=== PATIENT | male | born 1930 | race Caucasian/White ===

== ENCOUNTER 2017-06-25 01:31 | Observation (INO) | payer OTHER ==
[~2017-06-25] VITALS: Ht 182.9 cm; Wt 74.0 kg
[~2017-06-25 01:31] MED LIST: ADULT LOW DOSE81 M1 PO; ALBUTEROL2.5 MG/3 M IH; ASPIR 8181 M1 PO; ATENOLOL25 MG PO; ATENOLOL50 MG PO; ATORVASTATIN CA40 MG PO; CALCITRIOL0.25 MCG PO; CARVEDILOL3.125 MG PO; CARVEDILOL6.25 MG PO; CORICIDIN HB1 TABLET PO; COUMADIN2.5 MG PO; COUMADIN5 MG PO; ENDOCET 5-3251 EACH PO; EXCEDRIN EXTRA1 EACH PO; FERROUS SULFAT324 M1 PO; FERROUS SULFAT325 MG PO; FLONASE16 G1 BOTH NARES; FUROSEMIDE40 MG PO; FUROSEMIDE80 MG PO; HYDROCODON-ACE1 EAC7 PO; IMODIUM MS REL1 EACH PO; IRON325 MG PO; IRON55 MG PO; ISOSORBIDE MONO30 MG PO; Imdur PO; K-Dur PO; KLOR-CON M2020 MEQ PO; LASIX40 MG PO; LASIX80 MG PO; LEVOFLOXACIN750 MG PO; LEVOTHYROXINE25 MCG PO; LIDOCAINE700 MG TD; LISINOPRIL20 MG PO; LISINOPRIL40 MG PO; LO-DOSE ASPIRIN81 M1 PO; LOVENOX60 MG/0.6 SC; Lasix PO; MIDODRINE HCL5 MG PO; MYCOSTATIN 100,60 ML PO; Norvasc PO; OMEPRAZOLE20 MG PO; POTASSIUM CHLO20 ME1 PO; PREDNISONE10 MG PO; PROBIOTIC1 EAC1 PO; PULMICORT FLE180 MCG IH; SALINE NASAL SP45 ML BOTH NARES; SYNTHROID25 MCG PO; SYNTHROID50 MCG PO; THERAGRAN1 TABLET PO; TYLENOL EXTRA500 MG PO; Tenormin PO; VANCOMYCIN HCL125 MG PO; VENTOLIN HFA18 GM IH; VITAMIN D; VITAMIN D1000 INTUN PO; VITAMIN D2000 UNIT PO; VITAMIN D32000 UNI1 PO; VYTORIN 10/21 TABLET PO; Vytorin 10/10 PO; WARFARIN SODIU2.5 MG PO; WARFARIN SODIUM5 MG PO; Zestril,Prinivil PO
[2017-06-25 02:22] LABS: BASOPHIL (%) 0.3 % (0-1); EOSINOPHIL (%) 0.3 % (0-5); HEMATOCRIT 37.8 % (38.0-50.0); HEMOGLOBIN 13.1 G/DL (12.5-16.6); IMMATURE GRANULOCYTE (%) 0.1 % (0.0-0.7); LYMPHOCYTE (%) 6.4 % (15-42); LYMPHOCYTE COUNT 0.5 K/uL (1.0-2.8); MCH 31.9 PG (29.0-34.0); MCHC 34.7 G/DL (30.0-36.0); MONOCYTE (%) 6.5 % (3-12); MONOCYTE COUNT 0.5 K/uL (0-0.8); NEUTROPHIL (%) 86.4 % (45-76); NEUTROPHIL COUNT 6.3 K/uL (1.8-6.4); PLATELET COUNT 110 K/uL (156-360); RBC DIS.WIDTH-CV 14.2 % (11.8-14.6); RBC DIS.WIDTH-SD 48.1 % (39-53); RED BLOOD COUNT 4.11 M/uL (4.00-5.50); WHITE BLOOD COUNT 7.2 K/uL (4.1-10.2)
[2017-06-25 02:31] LABS: ALBUMIN 4.3 g/dL (3.2-4.8); CHLORIDE 105 mEq/L (99-109); SODIUM 136 mEq/L (136-147)
[2017-06-25 02:32] LABS: MAGNESIUM 1.9 mg/dL (1.3-2.7)
[2017-06-25 02:33] LABS: GLUCOSE 152 mg/dL (70-99)
[2017-06-25 02:34] LABS: TOTAL PROTEIN 6.9 g/dL (6.4-8.3)
[2017-06-25 02:35] LABS: TOTAL BILIRUBIN 1.1 mg/dL (0.0-1.0)
[2017-06-25 02:37] LABS: ALKALINE PHOSPHATASE 115 IU/L (3-129); CREATININE 1.5 mg/dL (0.6-1.3); GFR ESTIMATE (CALCULATED) 47 mL/min/ (58.99-99999)
[2017-06-25 02:38] LABS: UREA NITROGEN (BUN) 27 mg/dL (9-23)
[2017-06-25 02:39] LABS: AST (GOT) 31 IU/L (2-34)
[2017-06-25 02:40] LABS: ALT (GPT) 17 IU/L (3-49)
[2017-06-25 02:41] LABS: APPEARANCE CLEAR ((CLEAR)); BILIRUBIN NEGATIVE; BLOOD SMALL; COLOR YELLOW ((YELLOW)); GLUCOSE (STRIP) NEGATIVE; KETONES NEGATIVE; LEUKOCYTES NEGATIVE; NITRITE NEGATIVE; PROTEIN (STRIP) NEGATIVE; SPECIFIC GRAVITY 1.011 (1.000-1.030); UROBILINOGEN 0.2 MG/DL (0.2-1.0)
[2017-06-25 02:44] LABS: TROP-I INTERPRETATION NEGATIVE; TROPONIN-I 0.03 ng/mL (0.0-0.30)
[2017-06-25 02:47] LABS: BACTERIA NONE SEEN /HPF; EPITHELIAL CELLS RARE /HPF; MUCUS TRACE /LPF; RED BLOOD CELLS 0-5 /HPF (0-5); UCUL ADDED? NO; WHITE BLOOD CELLS 0-5 /HPF (0-5)
[2017-06-25 03:44] LABS: INTER. NORMALIZED RATIO 2.5
[2017-06-25 06:53] LABS: BASOPHIL (%) 0.1 % (0-1); EOSINOPHIL (%) 0.1 % (0-5); HEMATOCRIT 35.6 % (38.0-50.0); HEMOGLOBIN 12.2 G/DL (12.5-16.6); IMMATURE GRANULOCYTE (%) 0.3 % (0.0-0.7); LYMPHOCYTE (%) 8.6 % (15-42); LYMPHOCYTE COUNT 0.8 K/uL (1.0-2.8); MCH 31.9 PG (29.0-34.0); MCHC 34.3 G/DL (30.0-36.0); MONOCYTE (%) 6.3 % (3-12); MONOCYTE COUNT 0.6 K/uL (0-0.8); NEUTROPHIL (%) 84.6 % (45-76); NEUTROPHIL COUNT 7.6 K/uL (1.8-6.4); PLATELET COUNT 99 K/uL (156-360); RBC DIS.WIDTH-CV 14.2 % (11.8-14.6); RED BLOOD COUNT 3.83 M/uL (4.00-5.50)
[2017-06-25 07:23] LABS: CHLORIDE 103 MEQ/L (99-109); CREATININE 1.5 MG/DL (0.6-1.3); GFR ESTIMATE (CALCULATED) 47 mL/min/ (58.99-99999); GLUCOSE 135 mg/dL (70-99); POTASSIUM 3.9 MEQ/L (3.7-5.4); SODIUM 139 MEQ/L (136-147); UREA NITROGEN (BUN) 26 mg/dL (9-23)
[2017-06-25 07:39] VITALS: BP 149/77
[2017-06-25] MEDS ORDERED: LASIX20 MG PO (09:29)
[2017-06-25] MEDS ORDERED: LASIX40 MG PO (09:29)
[2017-06-25] MEDS ORDERED: COUMADIN7.5 MG PO (09:32)
[2017-06-25] MEDS ORDERED: COUMADIN5 MG PO (09:33)
[2017-06-25] MEDS ORDERED: FEOSOL325 MG PO (09:35)
[2017-06-25] MEDS ORDERED: FLORASTOR250 MG PO (09:36)
[2017-06-25] MEDS ORDERED: KLOR-CON 1010 ME1 PO (09:38)
[2017-06-25 13:18] VITALS: BP 123/58
[2017-06-25 16:26] VITALS: BP 115/55
[2017-06-25 20:00] VITALS: BP 100/57
[2017-06-25 22:39] VITALS: BP 113/67
[2017-06-26 00:40] VITALS: BP 113/60
[2017-06-26 04:28] VITALS: BP 123/61
[2017-06-26 06:32] LABS: HEMATOCRIT 32.8 % (38.0-50.0); MCH 31.8 PG (29.0-34.0); MCHC 33.5 G/DL (30.0-36.0); MCV 94.8 FL (86-99); PLATELET COUNT 92 K/uL (156-360); RBC DIS.WIDTH-CV 14.3 % (11.8-14.6); RED BLOOD COUNT 3.46 M/uL (4.00-5.50); WHITE BLOOD COUNT 5.7 K/uL (4.1-10.2)
[2017-06-26 06:41] LABS: INTER. NORMALIZED RATIO 2.6
[2017-06-26 06:54] LABS: CHLORIDE 103 MEQ/L (99-109); CREATININE 1.4 MG/DL (0.6-1.3); GFR ESTIMATE (CALCULATED) 51 mL/min/ (58.99-99999); GLUCOSE 102 mg/dL (70-99); POTASSIUM 3.8 MEQ/L (3.7-5.4); SODIUM 139 MEQ/L (136-147); UREA NITROGEN (BUN) 29 mg/dL (9-23)
[2017-06-26 07:07] VITALS: BP 128/66
[2017-06-26] MEDS ORDERED: AUGMENTIN500 MG PO (08:43)
== END 2017-06-26 10:52 | disposition home or self-care (01) ==
LOC: EME → EDBD 01:31 → EME 01:31 → EDOF 05:28 → ENRESERV 05:32 → 5WEST 07:18
PROVIDERS: Emergency Medicine; Hospitalist; Internal Medicine
DX: J69.0 Pneumonitis due to inhalation of food and vomit (principal); R09.02 Hypoxemia; R94.31 Abnormal electrocardiogram [ECG] [EKG]; I48.0 Paroxysmal atrial fibrillation; I25.5 Ischemic cardiomyopathy; I25.10 Atherosclerotic heart disease of native coronary artery without angina pectoris; I25.2 Old myocardial infarction; Z95.810 Presence of automatic (implantable) cardiac defibrillator; Z95.1 Presence of aortocoronary bypass graft; Z79.01 Long term (current) use of anticoagulants; J43.9 Emphysema, unspecified; I10 Essential (primary) hypertension; E78.5 Hyperlipidemia, unspecified; Z87.891 Personal history of nicotine dependence
CPT/HCPCS: 71045; 71046; 80048; 80048 91; 80053; 81003; 83605; 83735; 83880; 84484; 85025; 85025 91; 85027; 85610; 87040; 87070; 87205; 92610 GN; 93005; 94799; 99281; 99285; G0378; G8996 GN CH; G8997 GN CH; G8998 GN CH; J0295; J2543; J7050

== ENCOUNTER 2018-01-17 20:25 | Emergency (ER) | payer OTHER ==
[~2018-01-17] VITALS: Ht 182.9 cm; Wt 80.8 kg
[~2018-01-17 20:25] MED LIST changes: +AUGMENTIN500 MG PO; +COUMADIN7.5 MG PO; +FEOSOL325 MG PO; +FLORASTOR250 MG PO; +KLOR-CON 1010 ME1 PO; +LASIX20 MG PO
[2018-01-17 21:50] LABS: HEMATOCRIT 37.1 % (38.0-50.0); HEMOGLOBIN 12.4 G/DL (12.5-16.6); MCH 31.7 PG (29.0-34.0); MCHC 33.4 G/DL (30.0-36.0); MCV 94.9 FL (86-99); RBC DIS.WIDTH-CV 16.8 % (11.8-14.6); RBC DIS.WIDTH-SD 57.3 % (39-53); RED BLOOD COUNT 3.91 M/uL (4.00-5.50); WHITE BLOOD COUNT 4.5 K/uL (4.1-10.2)
[2018-01-17 22:06] LABS: CHLORIDE 101 mEq/L (99-109); POTASSIUM 3.9 mEq/L (3.7-5.4)
[2018-01-17 22:07] LABS: SODIUM 138 mEq/L (136-147)
[2018-01-17 22:08] LABS: GLUCOSE 164 mg/dL (70-99); INTER. NORMALIZED RATIO 3.8
[2018-01-17 22:12] LABS: CREATININE 1.5 mg/dL (0.6-1.3); GFR ESTIMATE (CALCULATED) 47 mL/min/ (58.99-99999)
[2018-01-17 22:13] LABS: UREA NITROGEN (BUN) 36 mg/dL (9-23)
[2018-01-17 22:21] LABS: TROP-I INTERPRETATION NEGATIVE; TROPONIN-I 0.05 ng/mL (0.0-0.30)
[2018-01-18 00:10] VITALS: BP 129/89
[2018-01-18 03:37] LABS: PLATELET COUNT 96 K/uL (156-360)
== END 2018-01-18 00:10 | disposition home or self-care (01) ==
LOC: EME 20:25
PROVIDERS: Emergency Medicine
DX: I13.0 Hypertensive heart and chronic kidney disease with heart failure and stage 1 through stage 4 chronic kidney disease, or unspecified chronic kidney disease (principal); I50.9 Heart failure, unspecified; N18.9 Chronic kidney disease, unspecified; E03.9 Hypothyroidism, unspecified; I25.2 Old myocardial infarction; Z95.0 Presence of cardiac pacemaker; Z95.1 Presence of aortocoronary bypass graft; Z85.46 Personal history of malignant neoplasm of prostate; Z87.891 Personal history of nicotine dependence; Z79.01 Long term (current) use of anticoagulants
CPT/HCPCS: 71046; 80048; 83880; 84484; 85027; 85610; 93005; 99281; 99285

== ENCOUNTER 2018-02-02 15:03 | Observation (INO) | payer OTHER ==
[~2018-02-02] VITALS: Ht 182.9 cm; Wt 65.9 kg
[~2018-02-02 15:03] MED LIST changes: -KLOR-CON 1010 ME1 PO; -SYNTHROID50 MCG PO; +SYNTHROID88 MCG PO
[2018-02-02 16:18] LABS: BASOPHIL (%) 0.6 % (0-1); EOSINOPHIL (%) 3.4 % (0-5); EOSINOPHIL COUNT 0.2 K/uL (0-0.3); HEMOGLOBIN 13.7 G/DL (12.5-16.6); IMMATURE GRANULOCYTE (%) 0.2 % (0.0-0.7); LYMPHOCYTE (%) 16.2 % (15-42); LYMPHOCYTE COUNT 0.8 K/uL (1.0-2.8); MCH 31.9 PG (29.0-34.0); MCHC 33.4 G/DL (30.0-36.0); MCV 95.3 FL (86-99); MONOCYTE (%) 14.4 % (3-12); MONOCYTE COUNT 0.7 K/uL (0-0.8); NEUTROPHIL (%) 65.2 % (45-76); PLATELET COUNT 116 K/uL (156-360); RBC DIS.WIDTH-CV 16.9 % (11.8-14.6); RBC DIS.WIDTH-SD 58.5 % (39-53); WHITE BLOOD COUNT 4.6 K/uL (4.1-10.2)
[2018-02-02 16:26] LABS: CHLORIDE 91 mEq/L (99-109); POTASSIUM 3.3 mEq/L (3.7-5.4); SODIUM 140 mEq/L (136-147)
[2018-02-02 16:28] LABS: GLUCOSE 86 mg/dL (70-99)
[2018-02-02 16:31] LABS: CREATININE 1.7 mg/dL (0.6-1.3); GFR ESTIMATE (CALCULATED) 41 mL/min/ (58.99-99999)
[2018-02-02 16:32] LABS: UREA NITROGEN (BUN) 41 mg/dL (9-23)
[2018-02-02 16:39] LABS: TROP-I INTERPRETATION NEGATIVE; TROPONIN-I 0.18 ng/mL (0.0-0.30)
[2018-02-02] MEDS ORDERED: LASIX40 MG PO (16:56)
[2018-02-02 19:21] LABS: PTT 33.6 SEC (25-37)
[2018-02-02 19:24] LABS: ALBUMIN 3.6 g/dL (3.2-4.8)
[2018-02-02 19:27] LABS: TOTAL PROTEIN 6.3 g/dL (6.4-8.3)
[2018-02-02 19:29] LABS: TOTAL BILIRUBIN 1.9 mg/dL (0.0-1.0)
[2018-02-02 19:30] LABS: ALKALINE PHOSPHATASE 104 IU/L (3-129)
[2018-02-02 19:32] LABS: AST (GOT) 28 IU/L (2-34); DIRECT BILIRUBIN 0.8 mg/dL (0.0-0.3)
[2018-02-02 19:33] LABS: ALT (GPT) 14 IU/L (3-49); URIC ACID 12.8 mg/dL (3.1-9.2)
[2018-02-02 20:13] VITALS: BP 104/60
[2018-02-03 00:05] VITALS: BP 104/58
[2018-02-03 02:52] LABS: TROP-I INTERPRETATION NEGATIVE; TROPONIN-I 0.15 ng/mL (0.0-0.30)
[2018-02-03 03:38] VITALS: BP 133/67
[2018-02-03 05:41] LABS: BASOPHIL (%) 0.5 % (0-1); EOSINOPHIL (%) 5.2 % (0-5); EOSINOPHIL COUNT 0.2 K/uL (0-0.3); HEMATOCRIT 40.5 % (38.0-50.0); HEMOGLOBIN 13.5 G/DL (12.5-16.6); IMMATURE GRANULOCYTE (%) 0.2 % (0.0-0.7); LYMPHOCYTE (%) 21.1 % (15-42); LYMPHOCYTE COUNT 0.9 K/uL (1.0-2.8); MCH 31.5 PG (29.0-34.0); MCHC 33.3 G/DL (30.0-36.0); MCV 94.6 FL (86-99); MONOCYTE (%) 12.5 % (3-12); MONOCYTE COUNT 0.5 K/uL (0-0.8); NEUTROPHIL (%) 60.5 % (45-76); NEUTROPHIL COUNT 2.5 K/uL (1.8-6.4); PLATELET COUNT 109 K/uL (156-360); RBC DIS.WIDTH-SD 58.5 % (39-53); RED BLOOD COUNT 4.28 M/uL (4.00-5.50); WHITE BLOOD COUNT 4.1 K/uL (4.1-10.2)
[2018-02-03 06:03] LABS: CHLORIDE 94 MEQ/L (99-109); CREATININE 1.4 MG/DL (0.6-1.3); GFR ESTIMATE (CALCULATED) 51 mL/min/ (58.99-99999); GLUCOSE 91 mg/dL (70-99); POTASSIUM 3.4 MEQ/L (3.7-5.4); SODIUM 138 MEQ/L (136-147); UREA NITROGEN (BUN) 37 mg/dL (9-23)
[2018-02-03 07:37] VITALS: BP 141/85
[2018-02-03 11:26] VITALS: BP 100/68
[2018-02-03 15:32] VITALS: BP 114/60
== END 2018-02-03 18:14 | disposition home or self-care (01) ==
LOC: EME 15:03 → EDOF 18:37 → 4SOUTH 18:37 → ENRESERV 18:40 → 4SOUTH 19:38
PROVIDERS: Emergency Medicine; Hospitalist; Internal Medicine Cardiovascular Disease
DX: N17.9 Acute kidney failure, unspecified (principal); R55 Syncope and collapse; I48.91 Unspecified atrial fibrillation; I25.5 Ischemic cardiomyopathy; I13.0 Hypertensive heart and chronic kidney disease with heart failure and stage 1 through stage 4 chronic kidney disease, or unspecified chronic kidney disease; I50.9 Heart failure, unspecified; N18.9 Chronic kidney disease, unspecified; I48.0 Paroxysmal atrial fibrillation; E87.6 Hypokalemia; D69.6 Thrombocytopenia, unspecified; E78.5 Hyperlipidemia, unspecified; I34.0 Nonrheumatic mitral (valve) insufficiency; Z79.01 Long term (current) use of anticoagulants; Z95.0 Presence of cardiac pacemaker; I25.10 Atherosclerotic heart disease of native coronary artery without angina pectoris; Z95.5 Presence of coronary angioplasty implant and graft; Z82.49 Family history of ischemic heart disease and other diseases of the circulatory system; Z82.3 Family history of stroke; Z88.8 Allergy status to other drugs, medicaments and biological substances
CPT/HCPCS: 71046; 80048; 80076; 81003; 82436; 84133; 84300; 84484; 84550; 85025; 85610; 85730; 93005; 99281; 99285; G0378; G8987 GO CI; G8988 GO CH; G8989 GO CH; G8989 GO CI; J7030